=== PATIENT | female | born 1950 | race Caucasian/White ===

== ENCOUNTER 2025-01-29 12:39 | Emergency (ER) | payer OTHER ==
[2025-01-29 12:52] VITALS: BP 142/77; PULSE 86; RESP 22; TEMP 99; BMI 55.4
[2025-01-29] MEDS ORDERED: ACETAMINOPHEN 500 MG TABLET (FP) ONE (13:29)
[2025-01-29] MEDS: ACETAMINOPHEN 500 MG TABLET (FP) PO ONE (14:06)
[2025-01-29 14:07] LABS: ABSOLUTE IMMATURE GRANULOCYTES 0.04 x10^3/uL (0.0-0.031); BASOPHILS # 0.03 x10^3/uL (0.01-0.08); EOSINOPHIL % 3.4 % (0.7-5.8); EOSINOPHILS # 0.26 x10^3/uL (0.04-0.36); HEMATOCRIT 38.5 % (34.1-44.9); HEMOGLOBIN 12.2 g/dL (11.2-15.7); MCHC 31.7 g/dl (32.2-35.5); MEAN CELL VOLUME 96.7 fl (79.4-94.8); MEAN PLT VOLUME 10.9 fl (9.4-12.3); MONOCYTE # 0.59 x10^3/uL (0.24-0.86); MONOCYTE % 7.8 % (4.7-12.5); PLATELET COUNT 214 x10^3/uL (182-369); RDW 14.9 % (12.4-16.6)
[2025-01-29 14:30] LABS: POTASSIUM 4.6 mmol/L (3.5-5.1)
[2025-01-29 14:32] LABS: ALBUMIN 3.7 g/dl (3.4-5.0); BLOOD UREA NITROGEN 17.8 mg/dL (7-18); CALCIUM 9.7 mg/dL (8.5-10.1); MAGNESIUM 2.1 mg/dL (1.8-2.4)
[2025-01-29 14:34] LABS: CREATININE 0.8 mg/dL (0.55-1.3)
[2025-01-29 14:36] LABS: BILIRUBIN,TOTAL 0.4 mg/dL (0.2-1); TOT PROT 7.4 g/dl (6.4-8.2)
[2025-01-29 14:49] LABS: ERYTHROCYTE SEDIMENTATION RATE 45 mm/hr (0-30)
== END 2025-01-29 16:00 | disposition left against medical advice (07) ==
LOC: JER 12:39
DX: L03.115 Cellulitis of right lower limb (principal); L03.116 Cellulitis of left lower limb; R94.31 Abnormal electrocardiogram [ECG] [EKG]
CPT/HCPCS: 36415; 73590-TC-LT-FY; 73590-TC-RT-FY; 73630-TC-RT-FY; 80053; 83735; 83880; 85025; 85651; 86140; 86850; 86900; 86901; 87040; 87070; 87205; 93005; 93010; 99285-25

== ENCOUNTER 2025-02-13 14:13 | Emergency (ER) | payer OTHER ==
[2025-02-13 14:44] VITALS: RESP 16; BMI 55.4
[2025-02-13 19:31] VITALS: BP 101/62; PULSE 87; TEMP 98.2
== END 2025-02-13 21:41 | disposition home or self-care (01) ==
LOC: JER 14:13
DX: T17.200A Unspecified foreign body in pharynx causing asphyxiation, initial encounter (principal)
CPT/HCPCS: 70360-TC-FY; 70490-TC; 99284-25